=== PATIENT | female | born 1995 | race African-American/Black ===

== ENCOUNTER 2017-05-20 10:27 | Observation (INO) | payer OTHER, MEDICAID ==
[~2017-05-20] VITALS: Ht 165.1 cm; Wt 84.4 kg
[~2017-05-20 10:27] MED LIST: IBUP100T20; PROIN3
[2017-05-20] MEDS ORDERED: DEXT 5%/LACTATED RINGERS 1,000 ML IV SCH (11:30)
[2017-05-20 11:44] LABS: CLARITY URINE CLEAR (CLEAR); COLOR URINE YELLOW (YELLOW); GLUCOSE URINE NEGATIVE (NEGATIVE); KETONES URINE NEGATIVE (NEGATIVE); LEUKOCYTE ESTERASE URINE 3+ (NEGATIVE); NITRITE URINE NEGATIVE (NEGATIVE); OCCULT BLOOD URINE NEGATIVE (NEGATIVE); PH URINE 8.5 (4.5-8.0); PROTEIN URINE NEGATIVE (NEGATIVE); SPECIFIC GRAVITY URINE 1.008 (1.005-1.030)
[2017-05-20] MEDS ORDERED: CEFAZOLIN 2,000 MG in DEXT 5% WATER 100 ML IV NR (13:00)
[2017-05-20] MEDS ORDERED: PREN-88 PO (13:25)
== END 2017-05-20 13:49 | disposition home or self-care (01) ==
LOC: L&D 10:27
PROVIDERS: ADMIT Obstetrics & Gynecology; ATTEND Obstetrics & Gynecology
DX: O26.893 Other specified pregnancy related conditions, third trimester (principal); R10.9 Unspecified abdominal pain; Z3A.32 32 weeks gestation of pregnancy
CPT/HCPCS: 81001; 82731; 96365; 99281; G0378; J0690; 96360; J7060; J7121